=== PATIENT | female | born 1960 | race Caucasian/White ===

== ENCOUNTER → 2017-01-08 | Outpatient (CLI) | payer BC ==
[~2017-01-08] MED LIST: AMLO5TAB2 PO; CHLO1TAB23 PO; GABA600T PO; HYDR-3580 PO; IBUP800T23 PO; LISI-515 PO; MELO-1 PO; METO50TA PO; MULT1TAB46; PANT40TA3 PO; VARE.5 PO; [UNRECOGNIZED DRUG - CODE] PO
[2017-01-08 13:04] LABS: BASOPHIL % 0.6 % (0.0-2.0); EOSINOPHIL # 0.2 TH/MM3 (0-0.4); EOSINOPHIL % 2.6 % (0.0-4.0); HEMATOCRIT 39.1 % (35.0-46.0); HEMO FLAGS DIFF FINAL; LYMPH % 24.2 % (9.0-44.0); MEAN CELL VOLUME 99.4 FL (80.0-100.0); MEAN CORPUSCULAR HEMOGLOBIN 33.7 PG (27.0-34.0); MEAN CORPUSCULAR HGB CONC 33.9 % (32.0-36.0); MONO % 10.5 % (0.0-8.0); NEUT % 62.1 % (16.0-70.0); PLATELET COUNT 238 TH/MM3 (150-450); RED BLOOD COUNT 3.93 MIL/MM3 (4.00-5.30); RED CELL DISTRIBUTION WIDTH 12.7 % (11.6-17.2); WHITE BLOOD COUNT 8.1 TH/MM3 (4.0-11.0)
[2017-01-08 13:06] LABS: BLOOD, URINE NEG (NEG); COMMENT (UR) CULT NOT INDICATED; CULTURE IF INDICATED CULT NOT INDICATED; GLUCOSE,URINE NEG (NEG); KETONE, URINE NEG (NEG); NITRITE,URINE NEG (NEG); PH, URINE 6.5 (5.0-8.5); SQUAMOUS EPITHELIAL CELL URINE 1 /hpf (0-5); URINE COLOR YELLOW (YELLW/STRAW)
[2017-01-08 13:13] LABS: INTERNATIONAL NORMALIZED RATIO 0.9 RATIO; PROTHROMBIN TIME - PATIENT 9.6 SEC (9.8-11.6)
--- NOTE | 2017-01-08 13:13 | RADRPT ---
EXAM DATE/TIME: 01/08/2017 12:48 [facility] COMPARISON: No previous studies available for comparison. INDICATIONS : Evaluate for penumonia, pneumothorax, or communicable dissease. Pre op for lumbar laminectomy. MEDICAL HISTORY : Hypertension. SURGICAL HISTORY : Tubal ligation. ENCOUNTER: Initial ACUITY: 1 day PAIN SCORE: 0/10 LOCATION: chest FINDINGS: PA and lateral views of the chest demonstrate the lungs to be symmetrically aerated without evidence of mass, infiltrate or effusion. The cardiomediastinal contours are unremarkable. Osseous structure s are intact. CONCLUSION: Normal examination for a patient of this age. Boy Dolan MD on January 08, 2017 at 13:12 Board Certified Radiologist. This report was verified electronically.
[2017-01-08 13:30] LABS: ANION GAP 7 MEQ/L (5-15); AST (GOT) 19 U/L (15-37); BICARBONATE 28.1 MEQ/L (21.0-32.0); BLOOD UREA NITROGEN 15 MG/DL (7-18); CHLORIDE 104 MEQ/L (98-107); GLOMERULAR FILTRATION RATE 116 ML/MIN (>89); GLUCOSE,FASTING 93 MG/DL (74-99); POTASSIUM 4.1 MEQ/L (3.5-5.1); SODIUM (NA) 139 MEQ/L (136-145)
[2017-01-08 13:31] LABS: ALT (GPT) 34 U/L (10-53)
[2017-01-08 13:33] LABS: ALKALINE PHOSPHATASE 62 U/L (45-117); TOTAL BILIRUBIN ADULT 0.3 MG/DL (0.2-1.0)
--- NOTE | 2017-01-11 18:10 | EKG ---
Date Performed: 01/08/2017 Time Performed: 12:35:18 PTAGE: 56 years EKG: SINUS BRADYCARDIA BORDERLINE ECG Compared to the previous tracing NO PREVIOUS TRACING DOCTOR: Byron Uribe Interpretating Date/Time 01/11/2017 18:08:53
== END ==
LOC: CPRE 11:35
PROVIDERS: ATTEND Neurological Surgery
DX: Z01.810 Encounter for preprocedural cardiovascular examination (principal); Z01.811 Encounter for preprocedural respiratory examination; Z01.812 Encounter for preprocedural laboratory examination; Z01.818 Encounter for other preprocedural examination; Z79.01 Long term (current) use of anticoagulants; M51.36 Other intervertebral disc degeneration, lumbar region; M51.16 Intervertebral disc disorders with radiculopathy, lumbar region; R94.31 Abnormal electrocardiogram [ECG] [EKG]
CPT/HCPCS: 36415; 71020; 80053; 81001; 85025; 85610; 85730; 93005

== ENCOUNTER 2017-01-18 08:30 | Inpatient (IN) | payer BC ==
--- NOTE | 2017-01-16 17:27 | MH ---
cc: HORTENSIA GEORGE M.D., ROHIT MALIK, VINOD K. MD DATE OF ADMISSION 01/20/2017 DATE OF ADMISSION 01/20/2017 ADMISSION DIAGNOSIS Lumbar degenerative disk disease HISTORY OF PRESENT ILLNESS This is a 56-year-old female who presented to us on 04/23/2016 and 01/01/2017 for evaluation of low back pain and left leg pain. She states her symptoms have been present for a year and a half and are progressively getting worse. She states the left foot goes numb all over. She has pain radiating all over her leg, also into the top and bottom of the left foot. She states that she has stabbing pain in the buttocks and posterior and lateral thigh. She also has complaints of right lower extremity swelling and sharp pain on the bottom of her foot. More recently, she states that the numbness has been specifically in the left lateral calf and in between the first and second toes on the left foot. She also states that she has lost her job secondary to her pain and not being able to work. She has failed pain management and has also been to physical therapy, which helped some with the left leg pain. However, she continues to have low back pain and left leg pain which is still intense. Her states that she cries every morning with pain. PAST MEDICAL HISTORY 1. Hypertension, 2. Gastroesophageal reflux disease. MEDICATIONS Current 1. Chlorpheniramine q.12 h 2. Multivitamin daily 3. Gabapentin 600 mg four times a day. 4. Amlodipine 5 mg daily. 5. Metoprolol 50 mg p.o. daily, 6. Chlorzoxazine 750 mg q.6 h p.r.n. muscle spasms. 7. Lortab 7.5/325 q.6 h p.r.n. pain. 8. Pantoprazole 40 mg p.o. daily. 9. Lisinopril 20 mg p.o. daily. 10. Meloxicam 15 mg p.o. daily. This was held one week prior to surgical intervention. 11. Ibuprofen 800 mg p.o. t.i.d. This was held one week prior to surgical intervention ALLERGIES No known drug allergies. FAMILY HISTORY Her mother is alive 88 years old. Her father is . She has a brother who is alive. 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 She is . She has three children. She smokes a half-a-pack for 30 years. She drinks alcohol daily, 2+ drinks per day. REVIEW OF SYSTEMS CONSTITUTIONAL: She denies any fever or chills. EARS, NOSE AND THROAT: No pharyngitis, exudates or bloody drainage from her nose CARDIOVASCULAR: She denies any chest pain. Positive for palpitations RESPIRATORY: No cough or shortness of breath GENITOURINARY: No dysuria or hematuria. MUSCULOSKELETAL: Positive for low back pain. SKIN: No rashes or pruritus NEUROLOGIC: No difficulty with speech or memory. GASTROINTESTINAL: No nausea, vomiting, abdominal pain PSYCHIATRIC: No anxiety or depression symptoms ENDOCRINE: No polyuria, polydipsia. HEMATOLOGIC: Positive for bruising easily but no bleeding tendencies. PHYSICAL EXAMINATION HEAD: Normocephalic, atraumatic. NECK: Supple. No carotid bruits heard on auscultation. LUNGS: Clear to auscultation bilaterally. CARDIOVASCULAR: Regular rate and rhythm, normal S1, S2. ABDOMEN: Soft, nontender. Positive bowel sounds. SKIN: No cyanosis or erythema. MUSCULOSKELETAL: She has left EHL weakness at 4-/5. Otherwise strength is 5/5 in the lower extremities. NEUROLOGIC: She is awake, alert and oriented. Cranial nerves II-XII are grossly intact. Speech is fluent. Comprehension is good. Left Achilles reflex is absent, right Achilles was 2+. Bilateral patellar reflexes are 2+. IMAGING STUDIES Reviewed MRI of the lumbar spine from November 20, 2016 which reveals severe L4-L5, L5-S1 degenerative disk disease with disk height collapse along with endplate changes and facet hypertrophy. There is also scoliosis from degeneration, also a disk protrusion and herniation on the left side at the L4-L5 level with spinal stenosis. ASSESSMENT AND PLAN We have discussed treatment options with the patient and she is requesting that we proceed with surgical intervention. She states that she is miserable with her level of discomfort and the patient's relates that she is tearful most of the time because of the pain and limitations with inability to ambulate even short distances or perform any housework. She has failed conservative treatment measures including physical therapy and pain management. We have discussed L4-L4 and L5-S1 decompression with transforaminal interbody fusion and pedicle screw fixation. The procedure as well as the risk, benefit, alternative and recovery time were explained in great detail with the patient and her . We have discussed that there is a 15% likelihood that she may not improve or be even worse after surgery. We have discussed the procedure using spine models in the office. All of their questions were answered to their satisfaction. We have discussed the risks along with surgery include but not limited to bleeding, infection, muscle weakness, voice hoarseness, difficulty swallowing, heart attack, stroke, blood clots, nonfusion, scar tissue formation among others. The patient and her understand the procedure as well as the risks involved and they are requesting that we proceed and she was therefore scheduled accordingly. Heriberto Foster MD Dictated by CAYDEN Kyle/ /4:48 PM /5:04 PM
[~2017-01-18] VITALS: Ht 165.1 cm; Wt 69.8 kg
[2017-01-20] MEDS ORDERED: LACTATED RINGER'S 1000 ML IV PRN (06:45)
[2017-01-20] MEDS ORDERED: INSULIN HUMAN REGULAR 1,000 UNITS/10 ML VIAL SQ PRN (06:45)
[2017-01-20] MEDS ORDERED: CHLORHEXIDINE GLUCONATE 2 % 1 PACK (2 CLOTHS) TOPICAL PRN (06:45)
[2017-01-20] MEDS ORDERED: SODIUM CHLORID 0.9% 500 ML IV PRN (06:45)
[2017-01-20] MEDS ORDERED: SODIUM CHLOR 0.9% 1000 ML INJ 1,000 ML IV SCH (06:45)
[2017-01-20] MEDS ORDERED: POVIDONE IODINE 5% (ANTISEPSIS KIT) 4 APPLICATIONS EACH NARE PRN (06:45)
[2017-01-20] MEDS ORDERED: METOPROLOL TARTRATE 25 MG TAB PO PRN (06:45)
[2017-01-20] MEDS ORDERED: VANCOMYCIN HCL 1000 MG VIAL ONE ×2 (07:21→07:23)
[2017-01-20] MEDS ORDERED: GELFOAM SIZE 100 ONE (07:22)
[2017-01-20] MEDS ORDERED: BUPIVACAINE/EPINEPHRINE 0.5% PF 10 ML VIAL ONE (07:22)
[2017-01-20] MEDS ORDERED: THROMBIN (TOPICAL) 5,000 UNIT VIAL ONE (07:23)
[2017-01-20] MEDS ORDERED: ACETAMINOPHEN 1000 MG/100 ML 100 ML IV ONE (12:00)
[2017-01-20] MEDS: VANCOMYCIN HCL 1000 MG ON-CALL/NS 250 ML IV SCH ×4 (13:24→13:26)
[2017-01-20] MEDS ORDERED: DO NOT ADM ANY ANTICOAGULANT DRUGS PRN (14:01)
--- NOTE | 2017-01-20 14:08 | PD.OP ---
MD Rakesh Marshall MD Operative Report Date of Surgery: Jan 20, 2017 Preoperative Diagnosis: Intractable low back pain with polyradiculopathy; L4-5 and L5-S1 degenerative disc disease with facet arthropathy and associated with spinal and foraminal stenosis Postoperative Diagnosis: Same Procedure: L4-5 and L5-S1 transforaminal interbody fusion; L4, L5 and S1 decompressive laminotomies with the microdiscectomy and foraminotomy; L4-S1 pedicle screw fixation; L4-5 and L5-S1 interbody cage placement; microsurgical technique Anesthesia: Gen. endotracheal by Grace Jimenez Surgeon: Heriberto Foster M.D. Director Of Medical Services(s): Charlene Nettles Operation and Findings: Following initiation of general endotracheal anesthesia, the patient had a Whitfield catheter placed along with sequential compression devices. A gram of vancomycin was administered intravenously and she was turned in a prone position on a Jorge A frame, on a Alexys table, and all pressure points adequately padded. The lumbosacral region was then prepped with Chloraprep and sterilely draped with Ioban along the usual sterile draping. A left paraspinal skin incision was then made extending from the L4-S1 levels after infiltrating the skin with 0.5% Marcaine with epinephrine solution extending down through the fascia. The muscle fibers were split using avascular fatty plane and detached from the underlying facets, transverse process and lateral portion of lamina on the right side and a self-retaining retractor used for exposure. Intraoperative fluoroscopy was also used for level of confirmation along with microscope magnification for further dissection. There was significant facet and ligamentum flavum hypertrophy noted at the L4-5 and L5-S1 levels. Left L4- 5 and L5-S1 facets were resected with a drill bit along with the lamina and there was severe foraminal and lateral recess stenosis from hypertrophied ligamentum flavum and facet which were decompressed bilaterally through the unilateral approach. There was a central disc herniation along with osteophytes at the L4-5 level which was also resected. There was significant disc height collapse along with disc protrusion also leading to the foraminal stenosis at the L5-S1 level. Epidural hemostasis was achieved with bipolar cautery and Gelfoam with thrombin. Subsequently entered into the disc space at the L4-5 and L5-S1 levels with a #15 blade and gopal were used for discectomy. I then placed PEEK cages packed with local autograft bone and more local autograft bone was packed adjacent to the cage in interspace for added interbody fusion at both levels. With placement of the cages, I was able to distract the interspace and opened up the foramen further bilaterally. Subsequently in order to facilitate the fusion and provide stabilization, pedicle screw fixation was undertaken using [place] spine screws on entry point at the left L4, L5, and S1 levels at the junction of the transverse process and facet. Subsequently using AP and lateral fluoroscopy tap and screw placement. The screws were then connected with a shree and locked in place with caps. The construct appeared very secure at this point. The area was then copiously irrigated with Vancomycin solution and powder. The retractors were removed and the bipolar cautery used for hemostasis. The muscle fascia was then approximated using 2-0 Vicryl interrupted stitches and then 3-0 Vicryl subcuticular stitches also placed in interrupted fashion. The final skin closure was completed with Mastisol and Steri-Strips. A sterile dressing was then applied. The patient then turned in supine position, extubated and taken to recovery room. There were no intraoperative complications. All sponge and needle counts were correct at the end of procedure. Estimated blood loss about 100 ml. Heriberto Foster MD Jan 20, 2017 14:08
[2017-01-20] MEDS ORDERED: CHLORZOXAZONE 750 MG PO PRN (14:15)
[2017-01-20] MEDS ORDERED: [UNRECOGNIZED DRUG - REMARK] PO SCH (14:15)
[2017-01-20] MEDS ORDERED: *morphine SULFATE 8 MG/ML PERIprocedure ONLY ONE (14:31)
--- NOTE | 2017-01-20 14:47 | RADRPT ---
EXAM DATE/TIME: 01/20/2017 09:17 [facility] COMPARISON: No previous studies available for comparison. INDICATIONS : Fusion L4,L5 and L5,S1 with screw and shree placement. MEDICAL HISTORY : Hypertension. SURGICAL HISTORY : Tubal ligation. ENCOUNTER: Initial ACUITY: 1 day PAIN SCORE: Non-responsive. LOCATION: Lumbar spine. CONCLUSION: Fluoroscopic images during placement of rods and screws along the left posteriorly at L4-S1. Interver tebral disc devices are also seen.. Herbert Chau MD on January 20, 2017 at 14:45 Board Certified Radiologist. This report was verified electronically.
[2017-01-20] MEDS: NS + KCL 20 MEQ INJ 1,000 ML IV SCH (15:00)
[2017-01-20] MEDS ORDERED: ceFAZolin INJ 1,000 MG VIAL ONE (15:07)
[2017-01-20] MEDS ORDERED: SODIUM CHLORIDE 0.9% INJ 100 ML ONE (15:08)
[2017-01-20 15:24] LABS: HEMATOCRIT 33.6 % (35.0-46.0); HEMOGLOBIN 11.1 GM/DL (11.6-15.3); MEAN CELL VOLUME 98.8 FL (80.0-100.0); MEAN CORPUSCULAR HEMOGLOBIN 32.8 PG (27.0-34.0); MEAN CORPUSCULAR HGB CONC 33.2 % (32.0-36.0); MEAN PLATELET VOLUME 7.6 FL (7.0-11.0); PLATELET COUNT 227 TH/MM3 (150-450); RED CELL DISTRIBUTION WIDTH 12.1 % (11.6-17.2); WHITE BLOOD COUNT 11.6 TH/MM3 (4.0-11.0)
[2017-01-20] MEDS ORDERED: cloNIDine HCL 0.1 MG TAB PO PRN (15:30)
[2017-01-20] MEDS ORDERED: MENTHOL LOZENGE BUCCAL PRN (15:30)
[2017-01-20] MEDS ORDERED: RESP: ALBUTEROL 2.5 MG/3 ML NEB (PRN) NEB (15:30)
[2017-01-20] MEDS ORDERED: ALUMINUM/MAGNESIUM/SIMETH 30 ML CUP PO PRN (15:30)
[2017-01-20] MEDS ORDERED: diphenhydrAMINE HCL 50 MG/ML VIAL IV PUSH PRN (15:30)
[2017-01-20] MEDS ORDERED: ACETAMINOPHEN 325 MG TAB PO PRN (15:30)
[2017-01-20] MEDS ORDERED: MAGNESIUM HYDROXIDE SUSP 30 ML CUP PO PRN (15:30)
[2017-01-20] MEDS ORDERED: NALOXONE HCL 0.4 MG/ML AMP IV PUSH PRN (15:30)
[2017-01-20] MEDS: MORPHINE SULFATE 30 MG/30 ML PCA IV SCH (15:45)
[2017-01-20] MEDS ORDERED: ONDANSETRON HCL 4 MG/2 ML VIAL IV PUSH PRN (15:45)
[2017-01-20] MEDS ORDERED: PROMETHAZINE INJ 25 MG/ML VIAL IM PRN (15:45)
[2017-01-20 15:57] LABS: CALCIUM 7.8 MG/DL (8.5-10.1); CREATININE 0.46 MG/DL (0.50-1.00)
[2017-01-20] MEDS ORDERED: MAGNESIUM SULFATE INJ 2 GM in SODIUM CHLORIDE 0.9% INJ 100 ML IV PRN (16:00)
[2017-01-20] MEDS ORDERED: SODIUM CHLORIDE 0.9% FLUSH 10 ML FLUSH IV FLUSH PRN (16:00)
[2017-01-20] MEDS ORDERED: POTASSIUM CHLOR 20 MEQ PREMIX 100 ML IV PRN (16:00)
[2017-01-20] MEDS ORDERED: CALCIUM GLUCONATE INJ 1 GM in SODIUM CHLORIDE 0.9% INJ 100 ML IV PRN (16:00)
[2017-01-20 16:07] VITALS: BP 135/76; PULSE 62; RESP 18; TEMP 96.5; O2SAT 94
[2017-01-20] MEDS ORDERED: CHLORZOXAZONE PO PRN (17:00)
[2017-01-20] MEDS: GABAPENTIN 300 MG CAP PO SCH ×2 (18:28→22:23)
[2017-01-20 20:05] VITALS: BP 120/72; PULSE 66; RESP 18; TEMP 96.7; O2SAT 96
[2017-01-20] MEDS ORDERED: ZOLPIDEM TARTRATE 5 MG TAB PO PRN (21:00)
[2017-01-20] MEDS: SODIUM CHLORIDE 0.9% FLUSH 10 ML FLUSH IV FLUSH SCH (22:23)
[2017-01-20] MEDS: LISINOPRIL 20 MG TAB PO SCH (22:23)
[2017-01-20] MEDS: VARENICLINE 0.5 MG TAB PO SCH (22:23)
[2017-01-20] MEDS: DOCUSATE SODIUM 100 MG CAP PO SCH (22:23)
[2017-01-20] MEDS: PCA - TOTAL MG MORPHINE DELIVERED PER SHIFT SCH (22:26)
[2017-01-21] VITALS (9 sets, daily range): BP systolic 93–122; BP diastolic 44–88; PULSE 69–86; RESP 17–19; TEMP 96.5–100.3; O2SAT 93–98
[2017-01-21] MEDS: NS + KCL 20 MEQ INJ 1,000 ML IV SCH ×3 (00:52→21:21)
[2017-01-21] MEDS: MORPHINE SULFATE 30 MG/30 ML PCA IV SCH ×2 (00:56→17:36)
[2017-01-21] MEDS: ACETAMINOPHEN/HYDROcodone 325 MG/10 MG TAB PO PRN ×4 (04:53→22:05)
[2017-01-21] MEDS: PCA - TOTAL MG MORPHINE DELIVERED PER SHIFT SCH ×3 (04:54→22:00)
--- NOTE | 2017-01-21 08:57 | HHI.NSPN ---
(Herbert rWight) History Chief Complaint: Incisional pain. (Herbert Wright) Interval History 01/21/17: Pt awake and alert. States had a bad night with pain last night but feeling much more comfortable this morning. No radiculopathy in LE. Paresthesias improved in LEs. (Herbert Wright) Review of Systems General: Negative for: fever, chills, insomnia Respiratory: Negative for: shortness of breath, cough, sputum Cardiovascular: Negative for: chest pain Gastrointestinal: Negative for: nausea, vomitting, diarrhea, constipation ( Herbert Wright) Exam Results Vital Signs Date Time Temp Pulse Resp B/P (MAP) Pulse Ox O2 Delivery O2 Flow Rate FiO2 01/21/17 08:00 100.3 83 18 120/88 (99) 93 01/20/17 15:15 Nasal Cannula 2 Intake and Output 01/21/17 01/21/17 01/22/17 08:00 16:00 00:00 Intake Total 1444 ml Output Total 1400 ml Balance 44 ml (Herbert Wright) Physical Examination Resp: CTA bilaterally Heart: NSR no murmurs Abd: Soft positive bs Skin: No cyanosis or erythema. SCDs in place. Muscle: Moves LEs with good strength Neuro: Pt awake and alert. Follows commands well. Speech clear and appropriate. (Herbert Wright) Lab, Micro, Other Results Last Impressions Lumbar Spine X-Ray 01/20/17 0000 Signed Impressions: Service Date/Time: Friday, January 20, 2017 09:17 - CONCLUSION: Fluoroscopic images during placement of rods and screws along the left posteriorly at L4-S1. Intervertebral disc devices are also seen.. Herbert Chau MD Laboratory Tests Test 01/20/17 15:13 White Blood Count 11.6 TH/MM3 Red Blood Count 3.40 MIL/MM3 Hemoglobin 11.1 GM/DL Hematocrit 33.6 % Mean Corpuscular Volume 98.8 FL Mean Corpuscular Hemoglobin 32.8 PG Mean Corpuscular Hemoglobin Concent 33.2 % Red Cell Distribution Width 12.1 % Platelet Count 227 TH/MM3 Mean Platelet Volume 7.6 FL Blood Urea Nitrogen 9 MG/DL Creatinine 0.46 MG/DL Random Glucose 109 MG/DL Calcium Level 7.8 MG/DL Sodium Level 141 MEQ/L Potassium Level 4.1 MEQ/L Chloride Level 107 MEQ/L Carbon Dioxide Level 27.0 MEQ/L Anion Gap 7 MEQ/L Estimat Glomerular Filtration Rate 140 ML/MIN (Herbert Wright) Medical Decision Making Impression and Plan A: 56 y/o FM s/p L4/L5 and L5/S1 TLIF with cage and pedicle screw fixation. P: Continue with pain control. Rehab efforts. Encourage incentive spirometry. (Herbert Wright) Attending Statement The exam, history, and the medical decision-making described in the above note were completed with the assistance of the mid-level provider. I reviewed and agree with the findings presented. I attest that I had a [id number] encounter with the patient on the same day, and personally performed and documented my assessment and findings in the medical record. (Heriberto Foster MD) Herbert Wright Jan 21, 2017 08:57 Heriberto Foster MD Jan 21, 2017 15:25
[2017-01-21] MEDS: VARENICLINE 0.5 MG TAB PO SCH ×2 (09:00→20:26)
[2017-01-21] MEDS: SODIUM CHLORIDE 0.9% FLUSH 10 ML FLUSH IV FLUSH SCH ×2 (09:00→20:29)
[2017-01-21] MEDS: GABAPENTIN 300 MG CAP PO SCH ×4 (10:13→20:27)
[2017-01-21] MEDS: amLODIPine BESYLATE 5 MG TAB PO SCH (10:13)
[2017-01-21] MEDS: DOCUSATE SODIUM 100 MG CAP PO SCH ×2 (10:13→20:27)
[2017-01-21] MEDS: METOPROLOL TARTRATE 50 MG TAB PO SCH (10:13)
[2017-01-21] MEDS: PANTOPRAZOLE SOD 40 MG DELAYED RELEASE TAB PO SCH (10:14)
[2017-01-21] MEDS: POLYETHYLENE GLYCOL 17 GM PKG PO SCH (10:14)
[2017-01-21] MEDS: BACLOFEN 10 MG TAB PO SCH ×3 (10:45→22:04)
[2017-01-21] MEDS: LISINOPRIL 20 MG TAB PO SCH (20:27)
[2017-01-21] MEDS ORDERED: CHLORPHENIRAMINE 12 MG PO SCH (21:00)
[2017-01-22 00:40] VITALS: BP 106/52
[2017-01-22] MEDS: BACLOFEN 10 MG TAB PO SCH (05:19)
[2017-01-22] MEDS: ACETAMINOPHEN/HYDROcodone 325 MG/10 MG TAB PO PRN ×3 (05:21→11:44)
[2017-01-22] MEDS: PCA - TOTAL MG MORPHINE DELIVERED PER SHIFT SCH (05:29)
[2017-01-22] MEDS: NS + KCL 20 MEQ INJ 1,000 ML IV SCH (07:45)
[2017-01-22 08:00] VITALS: BP 128/69; PULSE 76; RESP 18; TEMP 98.6; O2SAT 96
[2017-01-22] MEDS: SODIUM CHLORIDE 0.9% FLUSH 10 ML FLUSH IV FLUSH SCH (09:00)
[2017-01-22] MEDS: VARENICLINE 0.5 MG TAB PO SCH (09:00)
[2017-01-22] MEDS: DOCUSATE SODIUM 100 MG CAP PO SCH (09:00)
[2017-01-22] MEDS: POLYETHYLENE GLYCOL 17 GM PKG PO SCH (09:00)
--- NOTE | 2017-01-22 09:34 | HHI.NSPN ---
(Herbert Wright) History Chief Complaint: Incisional pain. (Herbert Wright) Interval History 01/21/17: Pt awake and alert. States had a bad night with pain last night but feeling much more comfortable this morning. No radiculopathy in LE. Paresthesias improved in LEs. 01/22/17: Pt awake and alert. States she wants to go home today. No radiculopathy in LEs. Back pain controlled. She states she stopped using the [employer] last night. (Herbert Wright) Review of Systems General: Negative for: fever, chills, insomnia Respiratory: Negative for: shortness of breath, cough, sputum Cardiovascular: Negative for: chest pain Gastrointestinal: Negative for: nausea, vomitting, diarrhea, constipation ( Herbert Wright) Exam Results Vital Signs Date Time Temp Pulse Resp B/P (MAP) Pulse Ox O2 Delivery O2 Flow Rate FiO2 01/22/17 05:29 18 01/22/17 00:40 106/52 (70) 01/21/17 23:42 99.2 70 95 01/21/17 12:00 Nasal Cannula 2.00 Intake and Output 01/22/17 01/22/17 01/23/17 08:00 16:00 00:00 Intake Total 1272 ml Balance 1272 ml (Herbert Wright) Physical Examination Resp: CTA bilaterally Heart: NSR no murmurs Abd: Soft positive bs Skin: No cyanosis or erythema. SCDs in place. Muscle: Moves LEs with good strength Neuro: Pt awake and alert. Follows commands well. Speech clear and appropriate. (Herbert Wright) Lab, Micro, Other Results Last Impressions Lumbar Spine X-Ray 01/20/17 0000 Signed Impressions: Service Date/Time: Friday, January 20, 2017 09:17 - CONCLUSION: Fluoroscopic images during placement of rods and screws along the left posteriorly at L4-S1. Intervertebral disc devices are also seen.. Herbert Chau MD (Herbert Wright) Medical Decision Making Impression and Plan A: 56 y/o FM s/p L4/L5 and L5/S1 TLIF with cage and pedicle screw fixation. P: Discharge pt home Discussed restrictions Follow up in 6 weeks with x-rays prior to visit. (Herbert Wright) Attending Statement The exam, history, and the medical decision-making described in the above note were completed with the assistance of the mid-level provider. I reviewed and agree with the findings presented. I attest that I had a [id number] encounter with the patient on the same day, and personally performed and documented my assessment and findings in the medical record. (Heriberto Foster MD) Herbert Wright Jan 22, 2017 09:34 Heriberto Foster MD Jan 22, 2017 12:19
--- NOTE | 2017-01-22 09:34 | HHI.NSPN ---
(Herbert Wright) History Chief Complaint: Incisional pain. (Herbert Wright) Interval History 01/21/17: Pt awake and alert. States had a bad night with pain last night but feeling much more comfortable this morning. No radiculopathy in LE. Paresthesias improved in LEs. 01/22/17: Pt awake and alert. States she wants to go home today. No radiculopathy in LEs. Back pain controlled. She states she stopped using the [employer] last night. (Herbert Wright) Review of Systems General: Negative for: fever, chills, insomnia Respiratory: Negative for: shortness of breath, cough, sputum Cardiovascular: Negative for: chest pain Gastrointestinal: Negative for: nausea, vomitting, diarrhea, constipation ( Herbert Wright) Exam Results Vital Signs Date Time Temp Pulse Resp B/P (MAP) Pulse Ox O2 Delivery O2 Flow Rate FiO2 01/22/17 05:29 18 01/22/17 00:40 106/52 (70) 01/21/17 23:42 99.2 70 95 01/21/17 12:00 Nasal Cannula 2.00 Intake and Output 01/22/17 01/22/17 01/23/17 08:00 16:00 00:00 Intake Total 1272 ml Balance 1272 ml (Herbert Wright) Physical Examination Resp: CTA bilaterally Heart: NSR no murmurs Abd: Soft positive bs Skin: No cyanosis or erythema. SCDs in place. Muscle: Moves LEs with good strength Neuro: Pt awake and alert. Follows commands well. Speech clear and appropriate. (Herbert Wright) Lab, Micro, Other Results Last Impressions Lumbar Spine X-Ray 01/20/17 0000 Signed Impressions: Service Date/Time: Friday, January 20, 2017 09:17 - CONCLUSION: Fluoroscopic images during placement of rods and screws along the left posteriorly at L4-S1. Intervertebral disc devices are also seen.. Herbert Chau MD (Herbert Wright) Medical Decision Making Impression and Plan A: 56 y/o FM s/p L4/L5 and L5/S1 TLIF with cage and pedicle screw fixation. P: Discharge pt home Discussed restrictions Follow up in 6 weeks with x-rays prior to visit. (Herbert Wright) Attending Statement The exam, history, and the medical decision-making described in the above note were completed with the assistance of the mid-level provider. I reviewed and agree with the findings presented. I attest that I had a [id number] encounter with the patient on the same day, and personally performed and documented my assessment and findings in the medical record. (Heriberto Foster MD) Herbert Wright Jan 22, 2017 09:34 Heriberto Foster MD Jan 22, 2017 12:19
[2017-01-22 09:53] VITALS: O2SAT 97
[2017-01-22] MEDS: GABAPENTIN 300 MG CAP PO SCH (09:58)
[2017-01-22] MEDS: amLODIPine BESYLATE 5 MG TAB PO SCH (09:58)
[2017-01-22] MEDS: METOPROLOL TARTRATE 50 MG TAB PO SCH (09:58)
[2017-01-22] MEDS: PANTOPRAZOLE SOD 40 MG DELAYED RELEASE TAB PO SCH (09:58)
[2017-01-22] MEDS ORDERED: HYDR-3366 PO (11:16)
[2017-01-22] MEDS ORDERED: BACL10TA PO (11:17)
== END 2017-01-22 12:10 | disposition home or self-care (01) | DRG 460 ==
LOC: HSDI 01-20 06:00 → N06B 01-20 15:35
PROVIDERS: ADMIT Neurological Surgery; ATTEND Neurological Surgery
PROC: 0SG00AJ Fusion of Lumbar Vertebral Joint with Interbody Fusion Device, Posterior Approach, Anterior Column, Open Approach (ICD-10-PCS; 2017-01-20)
PROC: 0ST20ZZ Resection of Lumbar Vertebral Disc, Open Approach (ICD-10-PCS; 2017-01-20)
PROC: 0ST40ZZ Resection of Lumbosacral Disc, Open Approach (ICD-10-PCS; 2017-01-20)
PROC: 0SG30AJ Fusion of Lumbosacral Joint with Interbody Fusion Device, Posterior Approach, Anterior Column, Open Approach (ICD-10-PCS; principal; 2017-01-20 09:02)
DX: M51.36 Other intervertebral disc degeneration, lumbar region (principal); I10 Essential (primary) hypertension; K21.9 Gastro-esophageal reflux disease without esophagitis; M51.26 Other intervertebral disc displacement, lumbar region; M51.16 Intervertebral disc disorders with radiculopathy, lumbar region; M51.37 Other intervertebral disc degeneration, lumbosacral region; M48.061 Spinal stenosis, lumbar region without neurogenic claudication
CPT/HCPCS: 72100; 76000; 80048; 85027; 86850; 86900; 86901; 94150; J0131; J0690; J2270; J2405; J3370; J3480; J7050; J7120; L0484